=== PATIENT | female | born 1965 | race Caucasian/White ===

== ENCOUNTER 2018-08-19 15:45 | Emergency (ER) | payer OTHER, SELFPAY ==
[2018-08-19 15:47] VITALS: BP 112/87; PULSE 127; RESP 17; TEMP 36.8; O2SAT 95; BMI 15.4
--- NOTE | 2018-08-19 17:14 | ED.VISSUMM ---
- ER Visit Summary Date of Service: 08/19/18 Chief Complaint: Fever History of Present Illness: The patient is a 53 F with a fever that started today. It was 101.5 at work. Her work sent her for an evaluation. She reports a dry cough and sinus pressure. Sinus pressure started 4 days ago. No other associated symptoms. Physical Examination: Afebrile here. Heart rate 127 otherwise vitals unremarkable. HEENT exam unremarkable. No sinus tenderness. Neck good range of motion. Lungs clear. Heart regular. Skin appears normal. Test Results: Flu test was negative. Emergency Department Course and Treatment: Influenza test was negative. Patient has a fever and sinus pressure. I suspect she has acute sinusitis. She will be treated with Augmentin and Afrin. She was given a work note. Return for any new or worsening issues. Treatment Plan: As above Disposition: Discharge Impression: 1. Acute sinusitis This note was generated with [employer] dictation software. It may contain incorrect words, spelling, and punctuation that were not noted in review of the chart prior to signing ED Disposition - Plan for ED Patient: Referrals: Care Physician,No Primary [Primary Care Provider] -
--- NOTE | 2018-08-19 17:16 | ED.DEP ---
ED Disposition - Plan for ED Patient: Instructions: ED Sinusitis Abx Tx Prescriptions: Amox/Clavulanate Tablet [Augmentin Tablet] 875 mg PO Q12H 10 Days #20 tab Referrals: Darline Robledo DO [NON-STAFF] -
[2018-08-19] MEDS: Oxymetazoline 0.05% 1 SPRAY SPRAY.BTL 2 SPRAY NASAL (17:30)
[2018-08-19] MEDS: Amox/Clavulanate 875 MG Tablet PO (17:30)
== END 2018-08-19 17:32 | disposition home or self-care (01) ==
LOC: ED 16:28
PROVIDERS: Emergency Provider Emergency Medicine
DX: J01.90 Acute sinusitis, unspecified (principal); Z72.0 Tobacco use
CPT/HCPCS: 87804; 99284